=== PATIENT | female | born 1940 | race Caucasian/White ===

== ENCOUNTER 2016-12-17 16:08 | Emergency (ER) | payer MEDICARE, OTHER | END 2016-12-17 19:48 | disposition home or self-care (01) | LOC: ER1 16:08 | DX: S20.212A Contusion of left front wall of thorax, initial encounter (principal); W01.0XXA Fall on same level from slipping, tripping and stumbling without subsequent striking against object, initial encounter; Y92.009 Unspecified place in unspecified non-institutional (private) residence as the place of occurrence of the external cause; Z88.5 Allergy status to narcotic agent | CPT/HCPCS: 71010; 72100; 72170; 96372; 99284; J1885 ==

== ENCOUNTER → 2017-01-10 | Outpatient (CLI) | payer MEDICARE, OTHER | LOC: LAB 09:48 | DX: R13.10 Dysphagia, unspecified (principal); R94.02 Abnormal brain scan; Z88.5 Allergy status to narcotic agent | CPT/HCPCS: 36415; 82565; 84520 ==

== ENCOUNTER → 2017-01-12 | Outpatient (CLI) | payer MEDICARE, OTHER | LOC: EMI 01-11 14:00 → KOH-I 07:57 | DX: R94.02 Abnormal brain scan (principal); R13.10 Dysphagia, unspecified; R90.89 Other abnormal findings on diagnostic imaging of central nervous system | CPT/HCPCS: 70553; A9577 ==